=== PATIENT | female | born 1980 | race Caucasian/White ===

== ENCOUNTER 2021-01-05 12:48 | Emergency (ER) | payer OTHER ==
[2021-01-05 15:02] LABS: HEMOGLOBIN 16.1 gm/dl (12.3-15.3); RED BLOOD COUNT 5.12 M/UL (4.00-5.10); WHITE BLOOD COUNT 12.6 K/UL (4.5-11.0)
[2021-01-05 15:36] LABS: BUN/CREATININE RATIO 14 (0-10)
[2021-01-05] MEDS ORDERED: CLEOCIN HCL300 MG PO (17:17)
[2021-01-05] MEDS ORDERED: HYDROCODON-ACE1 EAC4 PO (17:23)
== END 2021-01-05 17:59 | disposition home or self-care (01) ==
LOC: ER1 12:48
PROVIDERS: Emergency Medicine
DX: K04.7 Periapical abscess without sinus (principal); F17.200 Nicotine dependence, unspecified, uncomplicated; Z90.710 Acquired absence of both cervix and uterus; Z88.0 Allergy status to penicillin
CPT/HCPCS: 70487; 80053; 83605; 85025; 87040; 96374; 96375; 99284; J2270; J2405; Q9963

== ENCOUNTER → 2021-06-29 | Outpatient (CLI) | payer OTHER ==
[~2021-06-29] MED LIST: CLEOCIN HCL300 MG PO; HYDROCODON-ACE1 EAC4 PO
== END ==
LOC: KOH-I 11:58
DX: R05.9 Cough, unspecified (principal); J43.9 Emphysema, unspecified
CPT/HCPCS: 71046

== ENCOUNTER → 2021-11-05 | Outpatient (CLI) | payer OTHER | LOC: KOH-I 12:54 | DX: R06.02 Shortness of breath (principal) | CPT/HCPCS: 71046 ==

== ENCOUNTER → 2021-12-23 | Outpatient (CLI) | payer OTHER | LOC: HEART 5 10:11 | DX: J44.9 Chronic obstructive pulmonary disease, unspecified (principal) | CPT/HCPCS: 94010 ==

== ENCOUNTER → 2022-01-04 | Outpatient (CLI) | payer OTHER | LOC: EXRD 10:10 | DX: R10.9 Unspecified abdominal pain (principal); K76.0 Fatty (change of) liver, not elsewhere classified | CPT/HCPCS: 76700 ==

== ENCOUNTER → 2022-03-03 | Outpatient (CLI) | payer OTHER | LOC: NM 09:00 | DX: R10.11 Right upper quadrant pain (principal) | CPT/HCPCS: 78227; A9537 ==